=== PATIENT | female | born 1975 | race Caucasian/White ===

== ENCOUNTER 2017-06-01 21:39 | Emergency (ER) | payer OTHER ==
[2017-06-01 22:51] VITALS: BP 135/61
== END 2017-06-01 22:51 | disposition home or self-care (01) ==
LOC: ED 21:39
DX: B02.9 Zoster without complications (principal)
CPT/HCPCS: J1885

== ENCOUNTER 2017-08-21 20:21 | Emergency (ER) | payer OTHER ==
[~2017-08-21] VITALS: Ht 162.6 cm; Wt 101.6 kg
[2017-08-21 22:52] LABS: UA SPECIFIC GRAVITY >=1.030 (1.005-1.035); microscopic required? YES; urine erythrocyte TRACE (NEGATIVE)
[2017-08-21 22:57] LABS: BASOPHIL % 0.3 % (0-2); PLATELET COUNT 306 x10^3mcL (130-400); RED CELL DISTRIBUTION WIDTH 13.6 % (11.5-14.5)
[2017-08-21 23:06] LABS: CALCIUM 9.1 mg/dL (8.5-10.1); CREATININE SERUM 1.2 mg/dL (0.6-1.0)
[2017-08-21 23:12] LABS: ALBUMIN 3.4 g/dL (3.4-5.0); BILIRUBIN TOTAL 0.26 mg/dL (0.20-1.00); TOTAL PROTEIN, SERUM 7.9 g/dL (6.4-8.2)
[2017-08-22 03:29] VITALS: BP 115/56
== END 2017-08-22 03:29 | disposition home or self-care (01) ==
LOC: ED 20:21
PROVIDERS: Emergency Medicine
DX: R07.89 Other chest pain (principal); R53.1 Weakness
CPT/HCPCS: 36415; 83880

== ENCOUNTER 2019-06-04 11:10 | Emergency (ER) | payer OTHER ==
[~2019-06-04] VITALS: Ht 160 cm; Wt 114.3 kg
[2019-06-04 11:17] VITALS: BP 142/73; Ht 160 cm; Wt 114.3 kg
== END 2019-06-04 12:26 | disposition home or self-care (01) ==
LOC: ED 11:10
DX: L03.012 Cellulitis of left finger (principal)
CPT/HCPCS: 90715; J2001

== ENCOUNTER 2020-04-02 14:25 | Emergency (ER) | payer OTHER ==
[~2020-04-02] VITALS: Ht 162.6 cm; Wt 118.8 kg
[2020-04-02 14:30] VITALS: Ht 162.6 cm; Wt 118.8 kg
[2020-04-02 15:52] VITALS: BP 132/70
== END 2020-04-02 15:52 | disposition home or self-care (01) ==
LOC: ED 14:25
DX: L98.9 Disorder of the skin and subcutaneous tissue, unspecified (principal); R03.0 Elevated blood-pressure reading, without diagnosis of hypertension